=== PATIENT | female | born 2000 | race Caucasian/White ===

== ENCOUNTER 2023-06-06 18:56 | Inpatient (IN) ==
--- NOTE | 2023-06-06 19:51 | Emergency Department Note ---
History of Present Illness General Chief complaint: Mental Health Evaluation Stated complaint: MHE Time Seen by Provider: 06/06/23 19:09 Source: patient and family (Mother and sister at bedside) History of Present Illness Provider complaint: Suicidal ideation Onset (ago): day(s) 1 23-year-old female presents emergency department for suicidal ideation. Patient reports she has been feeling suicidal for the last day due to stress at her job at the [employer]. Patient states she was written up due to an absence recently without a doctor's note. She reports no specific plan as to how she would harm self. She reports no chance of . She reports no drugs or alcohol. Home Medications Medication Instructions Recorded Confirmed Type lamotrigine 100 mg tablet 150 mg PO 1XD 06/06/23 06/06/23 History lurasidone 20 mg tablet 20 mg PO 3XD 06/06/23 06/06/23 History Allergies Allergy/AdvReac Type Severity Reaction Status Date / Time No Known Allergies Allergy Unverified 08/14/11 11:28 Past Med/Surg History Medical History ADHD Anxiety Bipolar disorder Depression Surgical History H/O wisdom tooth extraction Family History Other Bipolar disorder Denies family history of Ovarian cancer Prostate cancer Heart disease Breast cancer Lung cancer Social History Smoking Status: Current every day smoker Tobacco Type: E-cigarettes / Vaping packs per day: 0.5; Hx Alcohol Use: Yes Alcohol Intake Frequency: Monthly or Less Hx Substance Use: No Preferred Language: Albanian Communication Ability: Effective Visual Impairment: No Limitations Hearing Ability: Normal Greens Keeper Required: No Beliefs That Will Affect Care: None marital status: Single Current Living Situation: Parent current occupational status: employed 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 How many Children do You have: 0 Feels Safe at Home: Yes Diet: regular during the past year weight has: remained stable Dental Care, Regularly: No Physical Activity Frequency: Does not Exercise Gender Identity: Female Assistive Devices: Glasses Physical Exam Vital Signs Vital Signs - 24 hr 06/06/23 19:01 06/07/23 00:02 06/07/23 00:18 Temperature 36.9 C 36.7 C Temperature Source Temporal Artery Scan Oral Pulse Rate 67 Pulse Rate [Left Finger] 55 L Pulse Rhythm [Left Finger] Regular Pulse Strength [Left Finger] Normal Respiratory Rate 16 18 Respiratory Effort / Characteristics Non-Labored Spontaneous Non-Labored Respiratory Depth Normal Normal Respiratory Pattern Regular Regular Blood Pressure 125/80 Blood Pressure [Left Arm] 111/73 Blood Pressure Mean 95 Blood Pressure Mean [Left Arm] 85 Blood Pressure Position [Left Arm] Sitting Pulse Oximetry 98 98 Oxygen Delivery Method Room Air Room Air Room Air Sepsis Recent Fever Within 48 Hours No Sepsis New/Unexplained Change in Mental Status No Sepsis Action Taken by Nursing No Action Required Physical Exam GENERAL: oriented to person, place, and time. appears well-developed and well- nourished. HENT: Exam performed. - Head: Normocephalic and atraumatic. EYES: Conjunctivae and EOM are normal. Right eye exhibits no discharge. Left eye exhibits no discharge. No scleral icterus. NECK: Normal range of motion. Neck supple. No JVD present. CV: Normal rate, regular rhythm, normal heart sounds and intact distal pulses. There is no peripheral edema. Palpable radial pulses bue. PULM/CHEST: Effort normal and breath sounds normal. No respiratory distress. No stridor. no wheezes. no rales. NEURO: Motor and sensation grossly intact. SKIN: Skin is warm and dry. He is not diaphoretic. PSYCH: Patient appears depressed. Suicidal ideation Course Course 1909: The patient was evaluated in room A6. A complete history and physical exam was performed 2030: Patient medically cleared. Awaiting evaluation by psychiatric family caseworker and possible placement. Patient placed in observation at this time. 0030: Patient excepted to 3 S. Medical Decision Making Laboratory Data 06/06/23 19:09 06/06/23 19:09 Lab Results 06/06/23 06/06/23 06/06/23 Range/Units 19:09 19:09 19:09 WBC 10.98 H (4.8-10.8) K/ul RBC 4.61 (4.20-5.40) M/uL Hgb 12.7 (12.0-16.0) g/dl Hct 38.4 (37.0-47.0) % MCV 83.3 (80.0-100.0) fL MCH 27.5 (25.0-34.0) pg MCHC 33.1 (32.0-36.0) g/dL RDW Std Deviation 38.4 (36.4-46.3) fL RDW Coeff of Daniel 12.7 (11.5-14.5) % Plt Count 338 (130-400) K/uL MPV 10.1 (9.4-12.4) fL Immature Gran % (Auto) 0.3 % Neut % (Auto) 71.6 % Lymph % (Auto) 22.3 % [place] % (Auto) 4.5 % Eos % (Auto) 0.9 % Baso % (Auto) 0.4 % Neut # (Auto) 7.87 H (1.40-6.50) K/uL Lymph # (Auto) 2.45 (1.2-3.4) K/uL [place] # (Auto) 0.49 (0.11-0.59) K/uL Eos # (Auto) 0.10 (0-0.50) K/uL Baso # (Auto) 0.04 (0-0.2) K/uL Immature Gran # (Auto) 0.03 (0.01-0.20) K/uL Sodium 138 (136-145) mmol/L Potassium 3.9 (3.5-5.1) mmol/L Chloride 105 (98-107) mmol/L Carbon Dioxide 24 (21-32) mmol/L Anion Gap 9 (3-11) BUN 14 (6-23) mg/dl Creatinine 0.79 (0.6-1.2) mg/dl Est Cr Clr Drug Dosing 119.6 ml/min Est GFR ( Amer) 122.3 ml/min Est GFR (Non-Af Amer) 105.5 ml/min BUN/Creatinine Ratio 17.7 (10-20) Glucose 96 (70-99(Fasting)) mg/dl Calcium 9.5 (8.6-10.3) mg/dl Total Bilirubin 0.3 (0.2-1.0) mg/dl AST 17 (13-39) U/L ALT 19 (7-52) U/L Alkaline Phosphatase 105 H (34-104) U/L Total Protein 7.4 (6.0-8.3) gm/dl Albumin 4.6 (3.4-5.0) gm/dl Globulin 2.8 (2.5-4.0) gm/dl Albumin/Globulin Ratio 1.6 (0.9-2) TSH 3.130 (0.300-4.500) uIu/ml Urine Color Urine Appearance (Clear) Urine pH (4.5-7.5) Ur Specific Byron (1.000-1.030) Urine Protein (Negative) Urine Glucose (UA) (Negative) Urine Ketones (Negative) Urine Blood (Negative) Urine Nitrite (Negative) Urine Bilirubin (Negative) Urine Urobilinogen (Negative) Ur Leukocyte Esterase (Negative) Urine WBC (Auto) (0-5) /hpf Urine RBC (Auto) (0-4) /hpf U Hyaline Cast (Auto) (0-5) /lpf U Epithel Cells (Auto) (0-5) /lpf Urine Bacteria (Auto) (Negative) Ur Renal Epithelial Cell Urine Mucus (None Prsent) Urine Yeast Salicylates (3.0-30) mg/dl Urine Opiates Screen (Neg) Ur Methadone, Qual (Neg) Acetaminophen (10-30) ug/ml Urine Barbiturates (Neg) Ur Phencyclidine (PCP) (Neg) U Amphetamin/Meth Scrn (Neg) MDMA (Ecstasy) Screen (Neg) U Benzodiazepines Scrn (Neg) Ur Cocaine Metabolite (Neg) U Marijuana (THC) Screen (Neg) Ethyl Alcohol mg/dL (<10.0) mg/dl SARS-CoV-2, RNA, NAAT (NEGATIVE) 06/06/23 06/06/23 06/06/23 Range/Units 19:09 19:09 19:12 WBC (4.8-10.8) K/ul RBC (4.20-5.40) M/uL Hgb (12.0-16.0) g/dl Hct (37.0-47.0) % MCV (80.0-100.0) fL MCH (25.0-34.0) pg MCHC (32.0-36.0) g/dL RDW Std Deviation (36.4-46.3) fL RDW Coeff of Daniel (11.5-14.5) % Plt Count (130-400) K/uL MPV (9.4-12.4) fL Immature Gran % (Auto) % Neut % (Auto) % Lymph % (Auto) % [place] % (Auto) % Eos % (Auto) % Baso % (Auto) % Neut # (Auto) (1.40-6.50) K/uL Lymph # (Auto) (1.2-3.4) K/uL [place] # (Auto) (0.11-0.59) K/uL Eos # (Auto) (0-0.50) K/uL Baso # (Auto) (0-0.2) K/uL Immature Gran # (Auto) (0.01-0.20) K/uL Sodium (136-145) mmol/L Potassium (3.5-5.1) mmol/L Chloride (98-107) mmol/L Carbon Dioxide (21-32) mmol/L Anion Gap (3-11) BUN (6-23) mg/dl Creatinine (0.6-1.2) mg/dl Est Cr Clr Drug Dosing ml/min Est GFR ( Amer) ml/min Est GFR (Non-Af Amer) ml/min BUN/Creatinine Ratio (10-20) Glucose (70-99(Fasting)) mg/dl Calcium (8.6-10.3) mg/dl Total Bilirubin (0.2-1.0) mg/dl AST (13-39) U/L ALT (7-52) U/L Alkaline Phosphatase (34-104) U/L Total Protein (6.0-8.3) gm/dl Albumin (3.4-5.0) gm/dl Globulin (2.5-4.0) gm/dl Albumin/Globulin Ratio (0.9-2) TSH (0.300-4.500) uIu/ml Urine Color Urine Appearance (Clear) Urine pH (4.5-7.5) Ur Specific [place] (1.000-1.030) Urine Protein (Negative) Urine Glucose (UA) (Negative) Urine Ketones (Negative) Urine Blood (Negative) Urine Nitrite (Negative) Urine Bilirubin (Negative) Urine Urobilinogen (Negative) Ur Leukocyte Esterase (Negative) Urine WBC (Auto) (0-5) /hpf Urine RBC (Auto) (0-4) /hpf U Hyaline Cast (Auto) (0-5) /lpf U Epithel Cells (Auto) (0-5) /lpf Urine Bacteria (Auto) (Negative) Ur Renal Epithelial Cell Urine Mucus (None Prsent) Urine Yeast Salicylates < 3.0 L (3.0-30) mg/dl Urine Opiates Screen (Neg) Ur Methadone, Qual (Neg) Acetaminophen < 3 L (10-30) ug/ml Urine Barbiturates (Neg) Ur Phencyclidine (PCP) (Neg) U Amphetamin/Meth Scrn (Neg) MDMA (Ecstasy) Screen (Neg) U Benzodiazepines Scrn (Neg) Ur Cocaine Metabolite (Neg) U Marijuana (THC) Screen (Neg) Ethyl Alcohol mg/dL < 10.0 (<10.0) mg/dl SARS-CoV-2, RNA, NAAT NEGATIVE (NEGATIVE) 06/06/23 06/06/23 Range/Units 19:23 19:23 WBC (4.8-10.8) K/ul RBC (4.20-5.40) M/uL Hgb (12.0-16.0) g/dl Hct (37.0-47.0) % MCV (80.0-100.0) fL MCH (25.0-34.0) pg MCHC (32.0-36.0) g/dL RDW Std Deviation (36.4-46.3) fL RDW Coeff of Daniel (11.5-14.5) % Plt Count (130-400) K/uL MPV (9.4-12.4) fL Immature Gran % (Auto) % Neut % (Auto) % Lymph % (Auto) % [place] % (Auto) % Eos % (Auto) % Baso % (Auto) % Neut # (Auto) (1.40-6.50) K/uL Lymph # (Auto) (1.2-3.4) K/uL [place] # (Auto) (0.11-0.59) K/uL Eos # (Auto) (0-0.50) K/uL Baso # (Auto) (0-0.2) K/uL Immature Gran # (Auto) (0.01-0.20) K/uL Sodium (136-145) mmol/L Potassium (3.5-5.1) mmol/L Chloride (98-107) mmol/L Carbon Dioxide (21-32) mmol/L Anion Gap (3-11) BUN (6-23) mg/dl Creatinine (0.6-1.2) mg/dl Est Cr Clr Drug Dosing ml/min Est GFR ( Amer) ml/min Est GFR (Non-Af Amer) ml/min BUN/Creatinine Ratio (10-20) Glucose (70-99(Fasting)) mg/dl Calcium (8.6-10.3) mg/dl Total Bilirubin (0.2-1.0) mg/dl AST (13-39) U/L ALT (7-52) U/L Alkaline Phosphatase (34-104) U/L Total Protein (6.0-8.3) gm/dl Albumin (3.4-5.0) gm/dl Globulin (2.5-4.0) gm/dl Albumin/Globulin Ratio (0.9-2) TSH (0.300-4.500) uIu/ml Urine Color Yellow Urine Appearance Cloudy A (Clear) Urine pH 6.5 (4.5-7.5) Ur Specific [place] 1.023 (1.000-1.030) Urine Protein Negative (Negative) Urine Glucose (UA) Negative (Negative) Urine Ketones Negative (Negative) Urine Blood Negative (Negative) Urine Nitrite Negative (Negative) Urine Bilirubin Negative (Negative) Urine Urobilinogen Negative (Negative) Ur Leukocyte Esterase Trace H (Negative) Urine WBC (Auto) 5-10 H (0-5) /hpf Urine RBC (Auto) 0-4 (0-4) /hpf U Hyaline Cast (Auto) 1-5 (0-5) /lpf U Epithel Cells (Auto) >30 H (0-5) /lpf Urine Bacteria (Auto) 1+ H (Negative) Ur Renal Epithelial Cell Not Reportable Urine Mucus Present A (None Prsent) Urine Yeast Not Reportable Salicylates (3.0-30) mg/dl Urine Opiates Screen Neg (Neg) Ur Methadone, Qual Neg (Neg) Acetaminophen (10-30) ug/ml Urine Barbiturates Neg (Neg) Ur Phencyclidine (PCP) Neg (Neg) U Amphetamin/Meth Scrn Neg (Neg) MDMA (Ecstasy) Screen Neg (Neg) U Benzodiazepines Scrn Neg (Neg) Ur Cocaine Metabolite Neg (Neg) U Marijuana (THC) Screen Neg (Neg) Ethyl Alcohol mg/dL (<10.0) mg/dl SARS-CoV-2, RNA, NAAT (NEGATIVE) MDM Narrative 1909: The patient was evaluated in room A6. A complete history and physical exam was performed 2030: Patient medically cleared. Awaiting evaluation by psychiatric family caseworker and possible placement. Patient placed in observation at this time. 0030: Patient excepted to 3 S. Observation note Indication: Psych eval/placement Patient, with anxiety, bipolar was first seen at 1909 hrs and the observation time began at 2030 hrs and was necessary in order to have psych evaluation completed . Upon re-evaluation, 4 hours of observation revealed that the patient should be admitted . Disposition date and time 2906/07/23. Impression & Plan Depression with suicidal ideation Discharge Plan Visit Data Chief Complaint: Mental Health Evaluation Stated Complaint: MHE ED Provider: César Haddad Discharge Problem: Depression with suicidal ideation Patient Disposition: Admitted As Inpatient Discharge Instructions Interventions: ED Discharge Assessment Last Done: 06/07/23 00:40
[2023-06-06 20:03] LABS: Appearance Urine Cloudy (Clear); Bilirubin Urine Negative (Negative); Blood Urine Negative (Negative); Color Urine Yellow; Epithelial Cell Urine Auto >30 /lpf (0-5); Glucose Urine UA Negative (Negative); Ketones Urine Negative (Negative); Leukocyte Esterase Urine Trace (Negative); Nitrite Urine Negative (Negative); Protein Urine Negative (Negative); Specific Gravity Urine 1.023 (1.000-1.030); Urobilinogen Urine Negative (Negative); pH Urine 6.5 (4.5-7.5)
[2023-06-06 20:03] LABS: Basophils # (auto) 0.04 K/uL (0-0.2); Basophils % (auto) 0.4 %; Eosinophils % (auto) 0.9 %; Hematocrit (blood only) 38.4 % (37.0-47.0); Hemoglobin 12.7 g/dl (12.0-16.0); Immature Granulocytes # (auto) 0.03 K/uL (0.01-0.20); Immature Granulocytes % (auto) 0.3 %; Lymphocytes # (auto) 2.45 K/uL (1.2-3.4); Lymphocytes % (auto) 22.3 %; Mean Corpuscular Hemoglobin 27.5 pg (25.0-34.0); Mean Corpuscular Hgb Conc 33.1 g/dL (32.0-36.0); Mean Corpuscular Volume 83.3 fL (80.0-100.0); Mean Platelet Volume 10.1 fL (9.4-12.4); Monocytes # (auto) 0.49 K/uL (0.11-0.59); Monocytes % (auto) 4.5 %; Neutrophils # (auto) 7.87 K/uL (1.40-6.50); Neutrophils % (auto) 71.6 %; Platelet Count 338 K/uL (130-400); RDW Coefficient of Variation 12.7 % (11.5-14.5); RDW Standard Deviation 38.4 fL (36.4-46.3); Red Blood Count 4.61 M/uL (4.20-5.40); White Blood Count 10.98 K/ul (4.8-10.8)
[2023-06-06 20:14] LABS: Bacteria Urine Automated 1+ (Negative); Mucus Urine Present (None Prsent); RBC Urine Automated 0-4 /hpf (0-4)
[2023-06-06 20:17] LABS: Albumin Globulin Ratio 1.6 (0.9-2); Albumin Level 4.6 gm/dl (3.4-5.0); BUN Creatinine Ratio 17.7 (10-20); Bilirubin,Total 0.3 mg/dl (0.2-1.0); Calcium 9.5 mg/dl (8.6-10.3); Creatinine Clr Calc Pharmacy 119.6 ml/min; Est GFR (African American) 122.3 ml/min; Est GFR (Non-African American) 105.5 ml/min; Globulin 2.8 gm/dl (2.5-4.0); Potassium 3.9 mmol/L (3.5-5.1); Total Protein 7.4 gm/dl (6.0-8.3)
[2023-06-06 20:29] LABS: Acetaminophen < 3 ug/ml (10-30); Salicylate < 3.0 mg/dl (3.0-30)
[2023-06-06 20:29] LABS: Amphetamines+Metham, Urine Neg (Neg); Barbiturates, Urine Neg (Neg); Benzodiazepine, Urine Neg (Neg); Cocaine, Urine Neg (Neg); MDMA (Ecstacy), Urine Neg (Neg); Methadone, Urine Neg (Neg); Opiate, Urine Neg (Neg); Phencyclidine, Urine Neg (Neg)
[2023-06-07] MEDS ORDERED: ALUMINUM/MAGNESIUM SUSP 30 ML UDC PO PRN (00:21)
[2023-06-07] MEDS ORDERED: MAGNESIUM HYDROXIDE SUSP 30 ML UDC PO PRN (00:21)
[2023-06-07] MEDS ORDERED: BISMUTH SUBSALICYLATE LIQD 236 ML PO PRN (00:21)
[2023-06-07] MEDS ORDERED: SODIUM CHLORIDE 0.65% NA SOLN 45 ML (OCEAN) PRN (00:21)
[2023-06-07] MEDS ORDERED: ACETAMINOPHEN 325 MG TAB PO PRN (00:21)
[2023-06-07] MEDS ORDERED: hydrOXYzine HCl 25 MG TAB PO PRN ×2 (00:21)
[2023-06-07] MEDS: NICOTINE 21 MG/24 HR TDSY TD SCH (08:23)
[2023-06-07] MEDS ORDERED: SUCRALFATE 1 GM TAB PO PRN (15:59)
[2023-06-07] MEDS ORDERED: NICOTINE POLACRILEX 2 MG GUM MT PRN (16:00)
--- NOTE | 2023-06-07 16:21 | History & Physical ---
Date of Service June 07, 2023 Impression / Recommendations Nasreen Jerome is a 23 year old with a history of bipolar disorder type II, anxiety, depression, ADHD who was admitted for increased depression and SI with plan. Diagnostically consistent with likely episode of depression in context of BPAD type II as well as SKY. They are deemed in need of psychiatric hospitalization for diagnostic clarification, safety and stabilization, medication management and development of further coping skills. Discussed medication treatment options in detail. Discussed risks, benefits and alternatives. Patient would like to start and consented to mirtazapine for augmentation for depression, anxiety, insomnia, poor appetite. Reviewed side effects including but not limited to: sedation, increased appetite and counseled on black box warning of potential for emergence of or increased SI and need to let staff know should this occur or should they feel unsafe. Also discussed importance of seeking emergency care following discharge if this side effect occurs in the future. Also reviewed side effects including but not limited to potential for fatal rash/zunilda's Karthikeyan syndrome with Lamictal as well as movement (TD, NMS), cardiac (QTc prolongation), and metabolic (stroke, insulin resistance) and necessity for fasting lipid and glucose labwork and AIMS done with score of 0 with Latuda. MNPR-gender diverse (1) Depression with suicidal ideation: (2) Bipolar 2 disorder, major depressive episode: (3) SKY (generalized anxiety disorder): (4) Deliberate self-cutting: Plan 06/07/2023: The patient was admitted to the [facility] ([facility] unit) on q15 min checks (behavioral with suicide precautions) for safety. The patient will participate in group, recreational, and milieu therapies and will be offered additional individual and family sessions as clinically appropriate. -Continue Latuda 20mg qd -Continue Lamictal 150mg qd -Start mirtazapine 15mg HS -Nicotine replacement -Fasting glucose and lipid panel in AM Inventory Assets Strengths: supportive relationships, willing to get treatment Needs: safety and stabilization, medication adjustment, additional coping skills, increased outpatient services Suicide Risk Level Suicide Risk Level: High-Moderate (q15 min suicide checks) (severe depression with SI with plan prior to admission but feels safe in the hospital, able to safety contract and agrees to let nursing/staff know should they develop plan, intent or feel unable to remain safe. ) Risk Factors Assessment Male: No : Yes Do You Have Access To A Gun?: No Health Problems: No Mental Health Diagnoses: Yes Substance Use Disorders: No Previous Attempt: No Family History of Suicide: No Previous Psychiatric Hospitalization: No Protective Factors Assessment Employed: Yes ([employer]) Stable Relationships: Yes Supportive Family: Yes Good Rapport with Provider: Yes Psychiatric History Identifying Data MARIA EUGENIA MILLER is a 23-year-old gender diverse individual who currently lives in [facility] with two roommates, has a history of ADHD, anxiety, depression and bipolar disorder type II, and was admitted on 06/07/23 00:21 on a 201 voluntary commitment for worsening depression and SI with plan. Chief Complaint "I've been in that period where it feels like nothing helps". History of Present Illness Maria Eugenia reports worsening depression, increased self-harm via cutting and SI with possible plan of filling their tub and cutting their wrists in the context of financial and work stress. They report depression symptoms of low energy, decreased sleep, decreased motivation, increased tearfulness, decreased appetite, nausea, and feeling like a burden to others which has been worsening over the last few weeks. They also report anxiety including related to dreading work and feeling easily overwhelmed. They note that "it makes me feel stupid to be so stressed about my job, it shouldn't be so much stress but I guess it's a toxic work environment". They also report sense of self-guilt for being in the hospital as this means more days of missing work and getting behind on rent payments/finances. They have been self-harming more frequently by cutting their arms, most recently to upper left arm. They are currently prescribed psychiatric medications of lamictal 150mg qd and latuda 20mg qd. Lamictal has been for a few months with unclear benefits and latuda was started about one month ago. Psychiatric ROS notable for history of possible episodes of hypomania, history of trauma, history of suspected ADHD reports having a few short attention span, poor memory, poor concentration. No history of acute psychosis. Past Psychiatric History Current Psychiatric Diagnosis: BPAD type II, ADHD, anxiety, depression Outpatient Services: Psychiatric medication via Thuy at [facility], therapy every other week with Georgina at [facility] Previous Psych Admissions: none Do You Have Access To A Gun?: No History of Previous Suicide Attempt: No Past Medication Trials: recalls abilify recently, cannot recall other past trials but thinks they have been on one other mood stabilizer Past Head Trauma/Neuro History History of Concussion/Seizure: No Allergies Allergy/AdvReac Type Severity Reaction Status Date / Time No Known Allergies Allergy Verified 06/07/23 16:10 Home Medications Medication Instructions Recorded Confirmed Type lamotrigine 100 mg tablet 150 mg PO 1XD 06/06/23 06/06/23 History lurasidone 20 mg tablet 20 mg PO 1XD 06/06/23 06/07/23 History omeprazole 20 mg capsule,delayed 20 mg 1XD 06/07/23 06/07/23 History release sucralfate 1 gram tablet (Carafate) 1 mg PO QID 06/07/23 06/07/23 History Family History Family History of: Depression, Anxiety, Other-List under Comment (suspects ADHD on paternal side, sister ) and Bipolar (mother and sister) Alcohol History Hx of Alcohol Use Over the Past 12 Months: No AUDIT Total Score: 0 Drinks alcohol a few times per year Smoking Use Have You Smoked or Used Tobacco Products in the Last 30 Days: Yes tobacco type: e-cigarettes Smoking Status: Current every day smoker Substance History Hx of Prescription Med Misuse Over the Past 12 Months: No Hx of Over the Counter Med Misuse Over the Past 12 Months: No Hx of Inhalent Misuse Over the Past 12 Months: No Hx of Organic Substance Use Over the Past 12 Months: No Hx of Illegal Substances/Street Drug Use Over Past 12 Months: No Problems as a Result of Past Substance Use: None Identified Personal History Living Arrangements: Home (with two roommates who are their close friends) Childhood: Mother and sister are good supports Highest Grade Completed: High School Graduate 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[employer]) Marital Status: Single Number Of Children: 0 Beliefs That Will Affect Care: None Current Legal Problems: No Hx Legal Problems: No Hx Traumatic Life Events: Yes Patient History Medical History ADHD Anxiety Bipolar disorder Depression Surgical History H/O wisdom tooth extraction Family History Other Bipolar disorder Denies family history of Ovarian cancer Prostate cancer Heart disease Breast cancer Lung cancer Social History Smoking Status: Current every day smoker Tobacco Type: E-cigarettes / Vaping packs per day: 0.5; Hx Alcohol Use: Yes Alcohol Intake Frequency: Monthly or Less Hx Substance Use: No Preferred Language: Bruneian Communication Ability: Effective Visual Impairment: No Limitations Hearing Ability: Normal Linen Clerk Required: No Beliefs That Will Affect Care: None marital status: Single Current Living Situation: Parent current occupational status: employed 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 How many Children do You have: 0 Feels Safe at Home: Yes Diet: regular during the past year weight has: remained stable Dental Care, Regularly: No Physical Activity Frequency: Does not Exercise Gender Identity: Female Assistive Devices: Glasses Review of Systems Review of Systems: All systems reviewed & are unremarkable except as noted in HPI & below Physical Exam Psychiatric: Orientation: alert and oriented x 3 Apperance: appropriately dressed and appropriately groomed Eye Contact: good eye contact Motor Behavior: no abnormal motor movements Speech: normal rate/rhythm/volume of speech Affect: + depressed affect and + anxious affect Mood: + depressed mood and + anxious mood Thought Process: goal directed thought process Thought Content: + cognitive distortions, reality based without delusions and + worthlessness Suicidal Thoughts: denies suicidal plan (feels safe here in the hospital, none for here) and denies suicidal intent; + reports suicidal thoughts (intermittent ) Homicidal Thoughts: denies homicidal thoughts Hallucinations: no auditory hallucinations and no visual hallucinations Cognition: recent memory grossly intact, remote memory grossly intact, attention grossly intact and language grossly intact Estimated Intelligence: consistent with education level Insight: + fair insight Judgment: + limited judgement Vital Signs (Past 24 Hours): Last Vital Signs Temp 36.9 C 06/07/23 06:21 Pulse 65 06/07/23 06:22 Resp 18 06/07/23 06:21 BP 89/57 L 06/07/23 06:22 Pulse Ox 98 06/07/23 06:21 O2 Del Method Room Air 06/07/23 06:21 Exam Statement: A physical exam was performed in the ED by Dr. Haddad for the purposes of medical clearance. I accept that physical as correct and adequate for the purposes of the inpatient physical exam. Results & Data ([facility]) Laboratory Results Laboratory Results - last 24 hr 06/06/23 06/06/23 06/06/23 19:09 19:09 19:09 WBC 10.98 H RBC 4.61 Hgb 12.7 Hct 38.4 MCV 83.3 MCH 27.5 MCHC 33.1 RDW Std Deviation 38.4 RDW Coeff of Daniel 12.7 Plt Count 338 MPV 10.1 Immature Gran % (Auto) 0.3 Neut % (Auto) 71.6 Lymph % (Auto) 22.3 Carroll % (Auto) 4.5 Eos % (Auto) 0.9 Baso % (Auto) 0.4 Neut # (Auto) 7.87 H Lymph # (Auto) 2.45 Carroll # (Auto) 0.49 Eos # (Auto) 0.10 Baso # (Auto) 0.04 Immature Gran # (Auto) 0.03 Sodium 138 Potassium 3.9 Chloride 105 Carbon Dioxide 24 Anion Gap 9 BUN 14 Creatinine 0.79 Est Cr Clr Drug Dosing 119.6 Est GFR ( Amer) 122.3 Est GFR (Non-Af Amer) 105.5 BUN/Creatinine Ratio 17.7 Glucose 96 Calcium 9.5 Total Bilirubin 0.3 AST 17 ALT 19 Alkaline Phosphatase 105 H Total Protein 7.4 Albumin 4.6 Globulin 2.8 Albumin/Globulin Ratio 1.6 TSH 3.130 Urine Color Urine Appearance Urine pH Ur Specific [place] Urine Protein Urine Glucose (UA) Urine Ketones Urine Blood Urine Nitrite Urine Bilirubin Urine Urobilinogen Ur Leukocyte Esterase Urine WBC (Auto) Urine RBC (Auto) U Hyaline Cast (Auto) U Epithel Cells (Auto) Urine Bacteria (Auto) Ur Renal Epithelial Cell Urine Mucus Urine Yeast POC Ur Test Salicylates Urine Opiates Screen Ur Methadone, Qual Acetaminophen Urine Barbiturates Ur Phencyclidine (PCP) U Amphetamin/Meth Scrn MDMA (Ecstasy) Screen U Benzodiazepines Scrn Ur Cocaine Metabolite U Marijuana (THC) Screen Ethyl Alcohol mg/dL SARS-CoV-2, RNA, NAAT 06/06/23 06/06/23 06/06/23 19:09 19:09 19:12 WBC RBC Hgb Hct MCV MCH MCHC RDW Std Deviation RDW Coeff of Daniel Plt Count MPV Immature Gran % (Auto) Neut % (Auto) Lymph % (Auto) Carroll % (Auto) Eos % (Auto) Baso % (Auto) Neut # (Auto) Lymph # (Auto) [place] # (Auto) Eos # (Auto) Baso # (Auto) Immature Gran # (Auto) Sodium Potassium Chloride Carbon Dioxide Anion Gap BUN Creatinine Est Cr Clr Drug Dosing Est GFR ( Amer) Est GFR (Non-Af Amer) BUN/Creatinine Ratio Glucose Calcium Total Bilirubin AST ALT Alkaline Phosphatase Total Protein Albumin Globulin Albumin/Globulin Ratio TSH Urine Color Urine Appearance Urine pH Ur Specific [place] Urine Protein Urine Glucose (UA) Urine Ketones Urine Blood Urine Nitrite Urine Bilirubin Urine Urobilinogen Ur Leukocyte Esterase Urine WBC (Auto) Urine RBC (Auto) U Hyaline Cast (Auto) U Epithel Cells (Auto) Urine Bacteria (Auto) Ur Renal Epithelial Cell Urine Mucus Urine Yeast POC Ur Test Salicylates < 3.0 L Urine Opiates Screen Ur Methadone, Qual Acetaminophen < 3 L Urine Barbiturates Ur Phencyclidine (PCP) U Amphetamin/Meth Scrn MDMA (Ecstasy) Screen U Benzodiazepines Scrn Ur Cocaine Metabolite U Marijuana (THC) Screen Ethyl Alcohol mg/dL < 10.0 SARS-CoV-2, RNA, NAAT NEGATIVE 06/06/23 06/06/23 06/07/23 19:23 19: 00:38 WBC RBC Hgb Hct MCV MCH MCHC RDW Std Deviation RDW Coeff of Daniel Plt Count MPV Immature Gran % (Auto) Neut % (Auto) Lymph % (Auto) Carroll % (Auto) Eos % (Auto) Baso % (Auto) Neut # (Auto) Lymph # (Auto) Carroll # (Auto) Eos # (Auto) Baso # (Auto) Immature Gran # (Auto) Sodium Potassium Chloride Carbon Dioxide Anion Gap BUN Creatinine Est Cr Clr Drug Dosing Est GFR ( Amer) Est GFR (Non-Af Amer) BUN/Creatinine Ratio Glucose Calcium Total Bilirubin AST ALT Alkaline Phosphatase Total Protein Albumin Globulin Albumin/Globulin Ratio TSH Urine Color Yellow Urine Appearance Cloudy A Urine pH 6.5 Ur Specific [place] 1.023 Urine Protein Negative Urine Glucose (UA) Negative Urine Ketones Negative Urine Blood Negative Urine Nitrite Negative Urine Bilirubin Negative Urine Urobilinogen Negative Ur Leukocyte Esterase Trace H Urine WBC (Auto) 5-10 H Urine RBC (Auto) 0-4 U Hyaline Cast (Auto) 1-5 U Epithel Cells (Auto) >30 H Urine Bacteria (Auto) 1+ H Ur Renal Epithelial Cell Not Reportable Urine Mucus Present A Urine Yeast Not Reportable POC Ur Test NEG Salicylates Urine Opiates Screen Neg Ur Methadone, Qual Neg Acetaminophen Urine Barbiturates Neg Ur Phencyclidine (PCP) Neg U Amphetamin/Meth Scrn Neg MDMA (Ecstasy) Screen Neg U Benzodiazepines Scrn Neg Ur Cocaine Metabolite Neg U Marijuana (THC) Screen Neg Ethyl Alcohol mg/dL SARS-CoV-2, RNA, NAAT Current Inpatient Medications Current Inpatient Medications: Current Inpatient Medications Acetaminophen (Acetaminophen 325 Mg Tab) 650 mg PO Q4H PRN PRN Reason: Headache or Minor Fever Stop: 07/07/23 00:20 Al Hydrox/Mg Hydrox/Simethicone (Aluminum/Magnesium Susp 30 Ml Udc) 30 ml PO Q4H PRN PRN Reason: GI Upset Stop: 07/07/23 00:20 Bismuth Subsalicylate (Bismuth Subsalicylate Liqd 236 Ml) 15 ml PO PRN PRN PRN Reason: Loose Stool Stop: 07/07/23 00:20 Hydroxyzine HCl (Hydroxyzine Hcl 25 Mg Tab) 50 mg PO HSZ PRN PRN Reason: Insomnia Stop: 07/07/23 00:20 Hydroxyzine HCl (Hydroxyzine Hcl 25 Mg Tab) 25 mg PO Q4H PRN PRN Reason: Anxiety Stop: 07/07/23 00:20 Lamotrigine (Lamotrigine 100 Mg Tab) 100 mg PO QAM [facility] Stop: 07/07/23 15:59 Magnesium Hydroxide (Magnesium Hydroxide Susp 30 Ml Udc) 30 ml PO DAILY PRN PRN Reason: Constipation Stop: 07/07/23 00:20 Miscellaneous (Remove Nicoderm Patch) 1 each N/A DAILY@0859 [facility] Stop: 07/08/23 08:58 Nicotine (Nicotine 21 Mg/24 Hr Tdsy) 21 mg TD QAM [facility] Stop: 07/07/23 08:59 Last Admin: 06/07/23 08:23 Dose: 21 mg Nicotine Polacrilex (Nicotine Polacrilex 2 Mg Gum) 1 piece MT PRN PRN PRN Reason: nicotine cravings Stop: 07/07/23 15:59 Sodium Chloride (Sodium Chloride 0.65% Na Soln 45 Ml ([place])) 1 - 2 sprays NA PRN PRN PRN Reason: Nasal Dryness/Congestion Stop: 07/07/23 00:20 Sucralfate (Sucralfate 1 Gm Tab) 1 gm PO DAILY PRN PRN Reason: Heartburn Stop: 07/08/23 08:59
[2023-06-07] MEDS: LURASIDONE HCL 40 MG TAB PO SCH (16:52)
[2023-06-07] MEDS: lamoTRIgine 100 MG TAB PO SCH (16:52)
[2023-06-07] MEDS: lamoTRIgine 25 MG TAB PO SCH (16:52)
[2023-06-07] MEDS: MIRTAZAPINE TAB 15 MG TAB PO SCH (21:10)
[2023-06-08] MEDS: LURASIDONE HCL 40 MG TAB PO SCH (08:32)
[2023-06-08] MEDS: lamoTRIgine 25 MG TAB PO SCH (08:33)
[2023-06-08] MEDS: lamoTRIgine 100 MG TAB PO SCH (08:33)
[2023-06-08] MEDS: NICOTINE 21 MG/24 HR TDSY TD SCH (08:37)
[2023-06-08 08:40] LABS: Chol HDL Ratio 3.8 (0-5)
--- NOTE | 2023-06-08 15:55 | Psychiatric Progress Note ---
Date of Service June 08, 2023 Impression / Recommendations Nasreen Jerome is a 23 year old with a history of bipolar disorder type II, anxiety, depression, ADHD who was admitted for increased depression and SI with plan. Diagnostically consistent with likely episode of depression in context of BPAD type II as well as SKY. They are deemed in need of psychiatric hospitalization for diagnostic clarification, safety and stabilization, medication management and development of further coping skills. MNPR-gender diverse 06/08/2023: Ongoing depression with intermittent SI, anxiety and poor sleep with multiple awakenings (though was also a fire alarm overnight). Given chronicity o f sleep problems may be worth considering outpatient sleep study to rule out sleep apnea. Explored role of job in leading to stress and mood symptoms and possible alternative work environments. Likely would require support with this process. Reviewed fasting glucose and lipid panel which was all normal. (1) Depression with suicidal ideation: (2) Bipolar 2 disorder, major depressive episode: (3) SKY (generalized anxiety disorder): (4) Deliberate self-cutting: (5) Insomnia: with multiple awakenings, consider outpatient sleep study to rule out obstructive sleep apnea Plan 06/08/2023: Continue current medications and tx plan. 06/07/2023: The patient was admitted to the [facility] on q15 min checks (behavioral with suicide precautions) for safety. The patient will participate in group, recreational, and milieu therapies and will be offered additional individual and family sessions as clinically appropriate. -Continue Latuda 20mg qd -Continue Lamictal 150mg qd -Start mirtazapine 15mg HS -Nicotine replacement -Fasting glucose and lipid panel in AM Inventory Assets Strengths: supportive relationships, willing to get treatment Needs: safety and stabilization, medication adjustment, additional coping skills, increased outpatient services Suicide Risk Level Suicide Risk Level: High-Moderate (q15 min suicide checks) (severe depression with SI with plan prior to admission but feels safe in the hospital, able to safety contract and agrees to let nursing/staff know should they develop plan, intent or feel unable to remain safe. ) Risk Factors Assessment Male: No : Yes Do You Have Access To A Gun?: No Health Problems: No Mental Health Diagnoses: Yes Substance Use Disorders: No Previous Attempt: No Family History of Suicide: No Previous Psychiatric Hospitalization: No Protective Factors Assessment Employed: Yes ([employer]) Stable Relationships: Yes Supportive Family: Yes Good Rapport with Provider: Yes Interval History Identifying Information MARIA EUGENIA MILLER is a 23-year-old gender diverse individual who currently lives in [facility] with two roommates, has a history of ADHD, anxiety, depression and bipolar disorder type II, and was admitted on 06/07/23 00:21 on a 201 voluntary commitment for worsening depression and SI with plan. Chief Complaint "I'm really tired and still worried about going back to work". Review of Systems Sleep Information Total Hours of Sleep: 5 Sleep Comments: Difficulty falling back asleep after being awoken by a fire drill Meal Information Percent Meal Consumed - Breakfast: 100 Percent Meal Consumed - Lunch: 100 Percent Meal Consumed - Dinner: 100 Subjective Subjective Patient was seen & assessed and interval progress reviewed with treatment team nursing and social work. Was able to fall asleep easily but with frequent nighttime awakenings which they feel has been the case since about middle school in terms of their sleep pattern. Still feeling intense anxiety and depression when thinking about returning to work. Wonders about social security benefits, explored this but also discussed benefits of work for emotional health/sense of meaning/happiness and discussed possible tele-work options. They feel unsure about how they would look for any type of remote work. They prefer to remain on current medications for now and see if sleep is any better tonight. Physical Exam Psychiatric Orientation: alert and oriented x 3 Apperance: appropriately dressed and appropriately groomed Eye Contact: good eye contact Motor Behavior: no abnormal motor movements Speech: normal rate/rhythm/volume of speech Affect: + depressed affect and + anxious affect Mood: + depressed mood and + anxious mood Thought Process: goal directed thought process and + concrete thought process Thought Content: + cognitive distortions, reality based without delusions and + worthlessness Suicidal Thoughts: denies suicidal plan (feels safe here in the hospital, none for here) and denies suicidal intent; + reports suicidal thoughts (intermittent ) Homicidal Thoughts: denies homicidal thoughts Hallucinations: no auditory hallucinations and no visual hallucinations Cognition: recent memory grossly intact, remote memory grossly intact, attention grossly intact and language grossly intact Estimated Intelligence: consistent with education level Insight: + limited insight Judgment: + limited judgement Vital Signs (Past 24 Hours) Last Vital Signs Temp 36.9 C 06/08/23 06:00 Pulse 62 06/08/23 06:36 Resp 16 06/08/23 06:00 BP 97/64 L 06/08/23 06:36 Pulse Ox 97 06/08/23 06:00 O2 Del Method Room Air 06/08/23 06:00 Results & Data ([facility]) Laboratory Results Laboratory Results - last 24 hr 06/08/23 07:10 Fasting Glucose 92 Triglycerides 106 Cholesterol 176 LDL Cholesterol, Calc 109 VLDL Cholesterol, Calc 21 HDL Cholesterol 46 Cholesterol/HDL Ratio 3.8 Current Inpatient Medications Current Inpatient Medications: Current Inpatient Medications Acetaminophen (Acetaminophen 325 Mg Tab) 650 mg PO Q4H PRN PRN Reason: Headache or Minor Fever Stop: 07/07/23 00:20 Al Hydrox/Mg Hydrox/Simethicone (Aluminum/Magnesium Susp 30 Ml Udc) 30 ml PO Q4H PRN PRN Reason: GI Upset Stop: 07/07/23 00:20 Bismuth Subsalicylate (Bismuth Subsalicylate Liqd 236 Ml) 15 ml PO PRN PRN PRN Reason: Loose Stool Stop: 07/07/23 00:20 Hydroxyzine HCl (Hydroxyzine Hcl 25 Mg Tab) 50 mg PO HSZ PRN PRN Reason: Insomnia Stop: 07/07/23 00:20 Hydroxyzine HCl (Hydroxyzine Hcl 25 Mg Tab) 25 mg PO Q4H PRN PRN Reason: Anxiety Stop: 07/07/23 00:20 Lamotrigine (Lamotrigine 100 Mg Tab) 100 mg PO QAM [facility] Stop: 07/07/23 15:59 Last Admin: 06/08/23 08:33 Dose: 100 mg Lamotrigine (Lamotrigine 25 Mg Tab) 50 mg PO QAM [facility] Stop: 07/07/23 15:59 Last Admin: 06/08/23 08:33 Dose: 50 mg Lurasidone HCl (Lurasidone Hcl 40 Mg Tab) 20 mg PO DAILY [facility] Stop: 07/07/23 15:59 Last Admin: 06/08/23 08:32 Dose: 20 mg Magnesium Hydroxide (Magnesium Hydroxide Susp 30 Ml Udc) 30 ml PO DAILY PRN PRN Reason: Constipation Stop: 07/07/23 00:20 Mirtazapine (Mirtazapine Tab 15 Mg Tab) 15 mg PO HS [facility] Stop: 07/07/23 21:59 Last Admin: 06/07/23 21:10 Dose: 15 mg Miscellaneous (Remove Nicoderm Patch) 1 each N/A DAILY@0859 [facility] Stop: 07/08/23 08:58 Last Admin: 06/08/23 08:37 Dose: 1 each Nicotine (Nicotine 21 Mg/24 Hr Tdsy) 21 mg TD QAM [facility] Stop: 07/07/23 08:59 Last Admin: 06/08/23 08:37 Dose: 21 mg Nicotine Polacrilex (Nicotine Polacrilex 2 Mg Gum) 1 piece MT PRN PRN PRN Reason: nicotine cravings Stop: 07/07/23 15:59 Sodium Chloride (Sodium Chloride 0.65% Na Soln 45 Ml ([place])) 1 - 2 sprays NA PRN PRN PRN Reason: Nasal Dryness/Congestion Stop: 07/07/23 00:20 Sucralfate (Sucralfate 1 Gm Tab) 1 gm PO DAILY PRN PRN Reason: Heartburn Stop: 07/08/23 08:59 Mental Health & Subst Abuse [place] Psychiatrist Name [place] [facility]rist[place] [facility] Comment: [address] [place] [facility] [place] [address] Therapist Name of Therapist: Crystal Amador Therapist's Therapy Appointment Comment: [address] [place] [address], Audiovisual Equipment Operator Name of Audiovisual Equipment Operator: None
[2023-06-08] MEDS: MIRTAZAPINE TAB 15 MG TAB PO SCH (21:15)
[2023-06-09] MEDS: LURASIDONE HCL 40 MG TAB PO SCH (08:37)
[2023-06-09] MEDS: lamoTRIgine 100 MG TAB PO SCH (08:37)
[2023-06-09] MEDS: lamoTRIgine 25 MG TAB PO SCH (08:37)
[2023-06-09] MEDS: NICOTINE 21 MG/24 HR TDSY TD SCH (08:38)
--- NOTE | 2023-06-09 08:51 | Psychiatric Progress Note ---
Date of Service June 09, 2023 Impression / Recommendations Nasreen Jerome is a 23 year old with a history of bipolar disorder type II, anxiety, depression, ADHD who was admitted for increased depression and SI with plan. Diagnostically consistent with likely episode of depression in context of BPAD type II as well as SKY. They are deemed in need of psychiatric hospitalization for diagnostic clarification, safety and stabilization, medication management and development of further coping skills. MNPR-gender diverse 06/09/2023: Says they're feeling "diann unremarkable", though this turns out to mean neither worse nor much better than prior to admission. Today reports better sleep [id number] (when there was a fire alarm and contemporaneous note says they described sleep as "poor") and worse tonight (with the same multiple awakenings reported yesterday for the previous night). Discussed need to get a consistent sense of whether mirtazapine is helpful or not. Reviewed history of current lamotrigine and lurasidone doses. Each is reported as having been at current dose for at least a month, "a little helpful", and not associated with any adverse effects. Reviewed lurasidone as being at smallest dose, possibility of greater benefit (and possibly greater side effect risk) at higher dose. Also discussed significant room for dose titration of lamotrigine. 06/08/2023: Ongoing depression with intermittent SI, anxiety and poor sleep with multiple awakenings (though was also a fire alarm overnight). Given chronicity of sleep problems may be worth considering outpatient sleep study to rule out sleep apnea. Explored role of job in leading to stress and mood symptoms and possible alternative work environments. Likely would require support with this process. Reviewed fasting glucose and lipid panel which was all normal. (1) Depression with suicidal ideation: (2) Bipolar 2 disorder, major depressive episode: (3) SKY (generalized anxiety disorder): (4) Deliberate self-cutting: (5) Insomnia: with multiple awakenings, consider outpatient sleep study to rule out obstructive sleep apnea Plan 06/09/2023: * increase lurasidone to 40 mg QAM with meal * continue lamotrigine 150 mg daily, consider titration to 200 mg/day, possibly in divided doses * continue mirtazapine 15 mg QHS; if ineffective, consider dose reduction to 7.5 mg 06/08/2023: Continue current medications and tx plan. 06/07/2023: The patient was admitted to the [facility] ([facility] on q15 min checks (behavioral with suicide precautions) for safety. The patient will participate in group, recreational, and milieu therapies and will be offered additional individual and family sessions as clinically appropriate. -Continue Latuda 20mg qd -Continue Lamictal 150mg qd -Start mirtazapine 15mg HS -Nicotine replacement -Fasting glucose and lipid panel in AM Inventory Assets Strengths: supportive relationships, willing to get treatment Needs: safety and stabilization, medication adjustment, additional coping skills, increased outpatient services Suicide Risk Level Suicide Risk Level: High-Moderate (q15 min suicide checks) (severe depression with SI with plan prior to admission but feels safe in the hospital, able to safety contract and agrees to let nursing/staff know should they develop plan, intent or feel unable to remain safe. ) Risk Factors Assessment Male: No : Yes Do You Have Access To A Gun?: No Health Problems: No Mental Health Diagnoses: Yes Substance Use Disorders: No Previous Attempt: No Family History of Suicide: No Previous Psychiatric Hospitalization: No Protective Factors Assessment Employed: Yes ([employer]) Stable Relationships: Yes Supportive Family: Yes Good Rapport with Provider: Yes Interval History Identifying Information MARIA EUGENIA MILLER is a 23-year-old gender diverse individual who uses "they/them" pronouns and who currently lives in [facility] with two roommates, has a history of ADHD, anxiety, depression and bipolar disorder type II, and was admitted on 06/07/23 00:21 on a 201 voluntary commitment for worsening depression and SI with plan. Chief Complaint "Diann unremarkable". Review of Systems Sleep Information Total Hours of Sleep: 6.5 Sleep Comments: Difficulty falling back asleep after being awoken by a fire drill Meal Information Percent Meal Consumed - Breakfast: 100 Percent Meal Consumed - Lunch: 100 Percent Meal Consumed - Dinner: 100 Subjective Subjective Patient was seen & assessed and interval progress reviewed in a multidisciplinary team meeting with nursing and social work. For details, see the "Impression" section below. Physical Exam Psychiatric Orientation: alert, oriented to person, oriented to place, oriented to time and cooperative (superficially) Apperance: appropriately dressed and appropriately groomed Eye Contact: good eye contact Motor Behavior: no abnormal motor movements Speech: normal rate/rhythm/volume of speech Affect: + depressed affect and + anxious affect Mood: + depressed mood and + anxious mood Thought Process: goal directed thought process and + concrete thought process Thought Content: + cognitive distortions, reality based without delusions and + worthlessness Suicidal Thoughts: denies suicidal plan (feels safe here in the hospital, none for here) and denies suicidal intent; + reports suicidal thoughts (intermittent ) Homicidal Thoughts: denies homicidal thoughts Hallucinations: no auditory hallucinations and no visual hallucinations Cognition: recent memory grossly intact, remote memory grossly intact, attention grossly intact and language grossly intact Estimated Intelligence: consistent with education level Insight: + fair insight Judgment: + limited judgement Vital Signs (Past 24 Hours) Last Vital Signs Temp 36.9 C 06/09/23 06:40 Pulse 59 L 06/09/23 06:41 Resp 16 06/09/23 06:40 BP 99/64 L 06/09/23 06:41 Pulse Ox 97 06/08/23 06:00 O2 Del Method Room Air 06/08/23 06:00 Results & Data ([facility]) Current Inpatient Medications Current Inpatient Medications: Current Inpatient Medications Acetaminophen (Acetaminophen 325 Mg Tab) 650 mg PO Q4H PRN PRN Reason: Headache or Minor Fever Stop: 07/07/23 00:20 Al Hydrox/Mg Hydrox/Simethicone (Aluminum/Magnesium Susp 30 Ml Udc) 30 ml PO Q4H PRN PRN Reason: GI Upset Stop: 07/07/23 00:20 Bismuth Subsalicylate (Bismuth Subsalicylate Liqd 236 Ml) 15 ml PO PRN PRN PRN Reason: Loose Stool Stop: 07/07/23 00:20 Hydroxyzine HCl (Hydroxyzine Hcl 25 Mg Tab) 50 mg PO HSZ PRN PRN Reason: Insomnia Stop: 07/07/23 00:20 Hydroxyzine HCl (Hydroxyzine Hcl 25 Mg Tab) 25 mg PO Q4H PRN PRN Reason: Anxiety Stop: 07/07/23 00:20 Lamotrigine (Lamotrigine 100 Mg Tab) 100 mg PO QAM [facility] Stop: 07/07/23 15:59 Last Admin: 06/09/23 08:37 Dose: 100 mg Lamotrigine (Lamotrigine 25 Mg Tab) 50 mg PO QAM [facility] Stop: 07/07/23 15:59 Last Admin: 06/09/23 08:37 Dose: 50 mg Lurasidone HCl (Lurasidone Hcl 40 Mg Tab) 20 mg PO DAILY [facility] Stop: 07/07/23 15:59 Last Admin: 06/09/23 08:37 Dose: 20 mg Magnesium Hydroxide (Magnesium Hydroxide Susp 30 Ml Udc) 30 ml PO DAILY PRN PRN Reason: Constipation Stop: 07/07/23 00:20 Mirtazapine (Mirtazapine Tab 15 Mg Tab) 15 mg PO HS [facility] Stop: 07/07/23 21:59 Last Admin: 06/08/23 21:15 Dose: 15 mg Miscellaneous (Remove Nicoderm Patch) 1 each N/A DAILY@0859 [facility] Stop: 07/08/23 08:58 Last Admin: 06/09/23 08:37 Dose: 1 each Nicotine (Nicotine 21 Mg/24 Hr Tdsy) 21 mg TD QAM [facility] Stop: 07/07/23 08:59 Last Admin: 06/09/23 08:38 Dose: 21 mg Nicotine Polacrilex (Nicotine Polacrilex 2 Mg Gum) 1 piece MT PRN PRN PRN Reason: nicotine cravings Stop: 07/07/23 15:59 Sodium Chloride (Sodium Chloride 0.65% Na Soln 45 Ml ([place])) 1 - 2 sprays NA PRN PRN PRN Reason: Nasal Dryness/Congestion Stop: 07/07/23 00:20 Sucralfate (Sucralfate 1 Gm Tab) 1 gm PO DAILY PRN PRN Reason: Heartburn Stop: 07/08/23 08:59 Mental Health & Subst Abuse Tx Psychiatrist Name of Psychiatrist: [facility] [address] [facility] [address] Therapist Name of Therapist: Crystal Amador Therapist's Therapy App[facility]ment [facility] [address] [facility] [address], Etymology Professor Name of Etymology Professor: None
[2023-06-09 14:10] LABS: Folate (Folic Acid),Ser orPlas 14.59 ng/ml (>5.38)
[2023-06-09] MEDS: MIRTAZAPINE TAB 15 MG TAB PO SCH (21:10)
[2023-06-10] MEDS: LURASIDONE HCL 40 MG TAB PO SCH (08:50)
[2023-06-10] MEDS: lamoTRIgine 25 MG TAB PO SCH (08:50)
[2023-06-10] MEDS: lamoTRIgine 100 MG TAB PO SCH (08:50)
[2023-06-10] MEDS: NICOTINE 21 MG/24 HR TDSY TD SCH (08:57)
--- NOTE | 2023-06-10 15:43 | Psychiatric Progress Note ---
Date of Service June 10, 2023 Impression / Recommendations Nasreen Jerome is a 23 year old with a history of bipolar disorder type II, anxiety, depression, ADHD who was admitted for increased depression and SI with plan. Diagnostically consistent with likely episode of depression in context of BPAD type II as well as SKY. They are deemed in need of psychiatric hospitalization for diagnostic clarification, safety and stabilization, medication management and development of further coping skills. MNPR-gender diverse 06/10/2023: Pt reports "having trouble getting going this morning". They're not certain whether that can be attributed to increase in lurasidone, especially sin ce the first increased dose was only a short time ago. Reports last night's sleep as once again "interrupted" but had less trouble getting back to sleep. Guardedly says they think anxiety is a bit better and agrees that mood is less depressed than at admission. 06/09/2023: Says they're feeling "mitch unremarkable", though this turns out to mean neither worse nor much better than prior to admission. Today reports better sleep [id number] (when there was a fire alarm and contemporaneous note says they described sleep as "poor") and worse tonight (with the same multiple awakenings reported yesterday for the previous night). Discussed need to get a consistent sense of whether mirtazapine is helpful or not. Reviewed history of current lamotrigine and lurasidone doses. Each is reported as having been at current dose for at least a month, "a little helpful", and not associated with any adverse effects. Reviewed lurasidone as being at smallest dose, possibility of greater benefit (and possibly greater side effect risk) at higher dose. Also discussed significant room for dose titration of lamotrigine. 06/08/2023: Ongoing depression with intermittent SI, anxiety and poor sleep with multiple awakenings (though was also a fire alarm overnight). Given chronicity of sleep problems may be worth considering outpatient sleep study to rule out sleep apnea. Explored role of job in leading to stress and mood symptoms and possible alternative work environments. Likely would require support with this process. Reviewed fasting glucose and lipid panel which was all normal. (1) Depression with suicidal ideation: (2) Bipolar 2 disorder, major depressive episode: (3) SKY (generalized anxiety disorder): (4) Deliberate self-cutting: (5) Insomnia: with multiple awakenings, consider outpatient sleep study to rule out obstructive sleep apnea Plan 06/09/2023: * continue lurasidone 40 mg QAM with meal - increased from 20 mg with first dose 06/10/23 * continue lamotrigine 150 mg daily, consider titration to 200 mg/day, possibly in divided doses * stop mirtazapine 06/08/2023: Continue current medications and tx plan. 06/07/2023: The patient was admitted to the [facility] ([facility]) on q15 min checks (behavioral with suicide precautions) for safety. The patient will participate in group, recreational, and milieu therapies and will be offered additional individual and family sessions as clinically appropriate. -Continue Latuda 20mg qd -Continue Lamictal 150mg qd -Start mirtazapine 15mg HS -Nicotine replacement -Fasting glucose and lipid panel in AM Inventory Assets Strengths: supportive relationships, willing to get treatment Needs: safety and stabilization, medication adjustment, additional coping skills, increased outpatient services Suicide Risk Level Suicide Risk Level: High-Moderate (q15 min suicide checks) (severe depression with SI with plan prior to admission but feels safe in the hospital, able to safety contract and agrees to let nursing/staff know should they develop plan, intent or feel unable to remain safe. ) Risk Factors Assessment Male: No : Yes Do You Have Access To A Gun?: No Health Problems: No Mental Health Diagnoses: Yes Substance Use Disorders: No Previous Attempt: No Family History of Suicide: No Previous Psychiatric Hospitalization: No Protective Factors Assessment Employed: Yes ([employer]) Stable Relationships: Yes Supportive Family: Yes Good Rapport with Provider: Yes Interval History Identifying Information MARIA EUGENIA MILLER is a 23-year-old gender diverse individual who uses "they/them" pronouns and who currently lives in [facility] with two roommates, has a history of ADHD, anxiety, depression and bipolar disorder type II, and was admitted on 06/07/23 00:21 on a 201 voluntary commitment for worsening depression and SI with plan. Chief Complaint "Getting there. Not much different.". Review of Systems Sleep Information Total Hours of Sleep: 7.5 Meal Information Percent Meal Consumed - Breakfast: 100 Percent Meal Consumed - Lunch: 100 Percent Meal Consumed - Dinner: 100 Subjective Subjective Patient was seen & assessed and interval progress reviewed in a multidisciplinary team meeting with nursing and social work. For details, see the "Impression" section below. Physical Exam Psychiatric Orientation: alert, oriented to person, oriented to place, oriented to time and cooperative (superficially) Apperance: appropriately dressed and appropriately groomed Eye Contact: good eye contact Motor Behavior: no abnormal motor movements Speech: normal rate/rhythm/volume of speech Affect: + depressed affect and + anxious affect Mood: + depressed mood and + anxious mood Thought Process: goal directed thought process and + concrete thought process Thought Content: + cognitive distortions, reality based without delusions and + worthlessness Suicidal Thoughts: denies suicidal plan and denies suicidal intent; + reports suicidal thoughts (fleeting, chronic) Homicidal Thoughts: denies homicidal thoughts Hallucinations: no auditory hallucinations and no visual hallucinations Cognition: recent memory grossly intact, remote memory grossly intact, attention grossly intact and language grossly intact Estimated Intelligence: consistent with education level Insight: + fair insight Judgment: + fair judgement Vital Signs (Past 24 Hours) Last Vital Signs Temp 36.8 C 06/10/23 06:39 Pulse 70 06/10/23 06:39 Resp 16 06/10/23 06:39 BP 97/63 L 06/10/23 06:39 Pulse Ox 97 06/08/23 06:00 O2 Del Method Room Air 06/08/23 06:00 Results & Data ([facility]) Current Inpatient Medications Current Inpatient Medications: Current Inpatient Medications Acetaminophen (Acetaminophen 325 Mg Tab) 650 mg PO Q4H PRN PRN Reason: Headache or Minor Fever Stop: 07/07/23 00:20 Al Hydrox/Mg Hydrox/Simethicone (Aluminum/Magnesium Susp 30 Ml Udc) 30 ml PO Q4H PRN PRN Reason: GI Upset Stop: 07/07/23 00:20 Bismuth Subsalicylate (Bismuth Subsalicylate Liqd 236 Ml) 15 ml PO PRN PRN PRN Reason: Loose Stool Stop: 07/07/23 00:20 Hydroxyzine HCl (Hydroxyzine Hcl 25 Mg Tab) 50 mg PO HSZ PRN PRN Reason: Insomnia Stop: 07/07/23 00:20 Hydroxyzine HCl (Hydroxyzine Hcl 25 Mg Tab) 25 mg PO Q4H PRN PRN Reason: Anxiety Stop: 07/07/23 00:20 Lamotrigine (Lamotrigine 100 Mg Tab) 100 mg PO QAM [facility] Stop: 07/07/23 15:59 Last Admin: 06/10/23 08:50 Dose: 100 mg Lamotrigine (Lamotrigine 25 Mg Tab) 50 mg PO QAM [facility] Stop: 07/07/23 15:59 Last Admin: 06/10/23 08:50 Dose: 50 mg Lurasidone HCl (Lurasidone Hcl 40 Mg Tab) 40 mg PO DAILY [facility] Stop: 07/10/23 08:59 Last Admin: 06/10/23 08:50 Dose: 40 mg Magnesium Hydroxide (Magnesium Hydroxide Susp 30 Ml Udc) 30 ml PO DAILY PRN PRN Reason: Constipation Stop: 07/07/23 00:20 Miscellaneous (Remove Nicoderm Patch) 1 each N/A DAILY@0859 [facility] Stop: 07/08/23 08:58 Last Admin: 06/10/23 08:57 Dose: 1 each Nicotine (Nicotine 21 Mg/24 Hr Tdsy) 21 mg TD QAM [facility] Stop: 07/07/23 08:59 Last Admin: 06/10/23 08:57 Dose: 21 mg Nicotine Polacrilex (Nicotine Polacrilex 2 Mg Gum) 1 piece MT PRN PRN PRN Reason: nicotine cravings Stop: 07/07/23 15:59 Sodium Chloride (Sodium Chloride 0.65% Na Soln 45 Ml ([place])) 1 - 2 sprays NA PRN PRN PRN Reason: Nasal Dryness/Congestion Stop: 07/07/23 00:20 Sucralfate (Sucralfate 1 Gm Tab) 1 gm PO DAILY PRN PRN Reason: Heartburn Stop: 07/08/23 08:59 Mental Health & Subst Abuse Tx Psychiatrist Name of Psychiatrist: [facility] Psychiatric Appointment Comment: [address] [place] [address] Therapist Name of Therapist: Crystal Amador Therapist's Therapy Appointment Comment: [address] [place] [address], Dexigraph Operator Name of Dexigraph Operator: None
[2023-06-10] MEDS ORDERED: ERGOCALCIFEROL 50,000 UNITS 1250 MCG CAP PO SCH (16:00)
[2023-06-11] MEDS: lamoTRIgine 100 MG TAB PO SCH (08:29)
[2023-06-11] MEDS: lamoTRIgine 25 MG TAB PO SCH (08:29)
[2023-06-11] MEDS: NICOTINE 21 MG/24 HR TDSY TD SCH (08:29)
[2023-06-11] MEDS: LURASIDONE HCL 40 MG TAB PO SCH (08:29)
--- NOTE | 2023-06-11 09:12 | Psychiatric Progress Note ---
Date of Service June 11, 2023 Impression / Recommendations Nasreen Jerome is a 23 year old with a history of bipolar disorder type II, anxiety, depression, ADHD who was admitted for increased depression and SI with plan. Diagnostically consistent with likely episode of depression in context of BPAD type II as well as SKY. They are deemed in need of psychiatric hospitalization for diagnostic clarification, safety and stabilization, medication management and development of further coping skills. MNPR-gender diverse 06/11/2023: Discussed in some detail pt's low vitamin D level, the need to use prescribed loading protocol then indefinite follow-on treatment. Slept better last night. Reports feeling "definitely less depressed, and not as anxious. Has no concerns about family meeting tomorrow but is somewhat apprehensive about planned discharge. In particular, dislikes current job and predicts that finding another will involve going farther from home but has no transportation. Denies all but fleeting suicidal thoughts (which have been present "for a very long time". Continues to have fairly frequent, intrusive thoughts of self-harm, usually of cutting, that have also been present for a long time. They don't see such thoughts at their current frequency and severity as particularly compelling or likely to impel acting up them. 06/10/2023: Pt reports "having trouble getting going this morning". They're not certain whether that can be attributed to increase in lurasidone, especially since the first increased dose was only a short time ago. Reports last night's sleep as once again "interrupted" but had less trouble getting back to sleep. Guardedly says they think anxiety is a bit better and agrees that mood is less depressed than at admission. 06/09/2023: Says they're feeling "mitch unremarkable", though this turns out to mean neither worse nor much better than prior to admission. Today reports better sleep [id number] (when there was a fire alarm and contemporaneous note says they described sleep as "poor") and worse tonight (with the same multiple awakenings reported yesterday for the previous night). Discussed need to get a consistent sense of whether mirtazapine is helpful or not. Reviewed history of current lamotrigine and lurasidone doses. Each is reported as having been at current dose for at least a month, "a little helpful", and not associated with any adverse effects. Reviewed lurasidone as being at smallest dose, possibility of greater benefit (and possibly greater side effect risk) at higher dose. Also discussed significant room for dose titration of lamotrigine. 06/08/2023: Ongoing depression with intermittent SI, anxiety and poor sleep with multiple awakenings (though was also a fire alarm overnight). Given chronicity of sleep problems may be worth considering outpatient sleep study to rule out sleep apnea. Explored role of job in leading to stress and mood symptoms and possible alternative work environments. Likely would require support with this process. Reviewed fasting glucose and lipid panel which was all normal. (1) Bipolar 2 disorder, major depressive episode: (2) SKY (generalized anxiety disorder): (3) Insomnia: with multiple awakenings, consider outpatient sleep study to rule out obstructive sleep apnea (4) Deliberate self-cutting: (5) Vitamin D deficiency: Plan 06/11/2023: * continue lurasidone 40 mg QAM with meal - increased from 20 mg with first dose 06/10/23 * continue lamotrigine 150 mg daily, consider titration to 200 mg/day, possibly in divided doses, on outpatient basis * continue ergocalciferol 50,000 IU twice weekly for 8 weeks, then cholecalciferol 5,000 IU daily * Repeat 25-OH vitamin D level in 4 months * Plan family meeting tomorrow * Discharge anticipated 1-2 days 06/10/2023: * continue lurasidone 40 mg QAM with meal - increased from 20 mg with first dose 06/10/23 * continue lamotrigine 150 mg daily, consider titration to 200 mg/day, possibly in divided doses * mirtazapine has been stoppped 06/09/2023: * continue lurasidone 40 mg QAM with meal - increased from 20 mg with first dose 06/10/23 * continue lamotrigine 150 mg daily, consider titration to 200 mg/day, possibly in divided doses * stop mirtazapine 06/08/2023: Continue current medications and tx plan. 06/07/2023: The patient was admitted to the [facility]) on q15 min checks (behavioral with suicide precautions) for safety. The patient will participate in group, recreational, and milieu therapies and will be offered additional individual and family sessions as clinically appropriate. -Continue Latuda 20mg qd -Continue Lamictal 150mg qd -Start mirtazapine 15mg HS -Nicotine replacement -Fasting glucose and lipid panel in AM Inventory Assets Strengths: supportive relationships, willing to get treatment Needs: safety and stabilization, medication adjustment, additional coping skills, increased outpatient services Suicide Risk Level Suicide Risk Level: Moderate (q15 min suicide checks) (severe depression with SI with plan prior to admission but feels safe in the hospital, able to safety contract and agrees to let nursing/staff know should they develop plan, intent or feel unable to remain safe. ) Risk Factors Assessment Male: No : Yes Do You Have Access To A Gun?: No Health Problems: No Mental Health Diagnoses: Yes Substance Use Disorders: No Previous Attempt: No Family History of Suicide: No Previous Psychiatric Hospitalization: No Protective Factors Assessment Employed: Yes ([employer]) Stable Relationships: Yes Supportive Family: Yes Good Rapport with Provider: Yes Interval History Identifying Information MARIA EUGENIA MILLER is a 23-year-old gender diverse individual who uses "they/them" pronouns and who currently lives in [facility] with two roommates, has a history of ADHD, anxiety, depression and bipolar disorder type II, and was admitted on 06/07/23 00:21 on a 201 voluntary commitment for worsening depression and SI with plan. Chief Complaint "I'm a bit anxious about tomorrow". Review of Systems Sleep Information Total Hours of Sleep: 8 Meal Information Percent Meal Consumed - Breakfast: 100 Percent Meal Consumed - Lunch: 100 Percent Meal Consumed - Dinner: 75 Subjective Subjective Patient was seen & assessed and interval progress reviewed in a multidisciplinary team meeting with the treatment team. For details, see the "Impression" section below. Physical Exam Psychiatric Orientation: alert, oriented to person, oriented to place, oriented to time and cooperative (superficially) Apperance: appropriately dressed and appropriately groomed Eye Contact: good eye contact Motor Behavior: no abnormal motor movements Speech: normal rate/rhythm/volume of speech Affect: + anxious affect and + constricted affect Mood: + depressed mood and + anxious mood Thought Process: goal directed thought process and + concrete thought process Thought Content: + cognitive distortions, reality based without delusions and + worthlessness Suicidal Thoughts: denies suicidal plan and denies suicidal intent; + reports suicidal thoughts (fleeting, chronic) Homicidal Thoughts: denies homicidal thoughts Hallucinations: no auditory hallucinations and no visual hallucinations Cognition: recent memory grossly intact, remote memory grossly intact, attention grossly intact and language grossly intact Estimated Intelligence: consistent with education level Insight: + fair insight Judgment: + fair judgement Vital Signs (Past 24 Hours) Last Vital Signs Temp 36.7 C 06/11/23 06:41 Pulse 60 06/11/23 06:42 Resp 16 06/11/23 06:41 BP 94/59 L 06/11/23 06:42 Pulse Ox 97 06/08/23 06:00 O2 Del Method Room Air 06/08/23 06:00 Results & Data ([facility]) Current Inpatient Medications Current Inpatient Medications: Current Inpatient Medications Acetaminophen (Acetaminophen 325 Mg Tab) 650 mg PO Q4H PRN PRN Reason: Headache or Minor Fever Stop: 07/07/23 00:20 Al Hydrox/Mg Hydrox/Simethicone (Aluminum/Magnesium Susp 30 Ml Udc) 30 ml PO Q4H PRN PRN Reason: GI Upset Stop: 07/07/23 00:20 Bismuth Subsalicylate (Bismuth Subsalicylate Liqd 236 Ml) 15 ml PO PRN PRN PRN Reason: Loose Stool Stop: 07/07/23 00:20 Ergocalciferol (Ergocalciferol 50,000 Units 1250 Mcg Cap) 50,000 units PO SuWe@0900 [facility] Stop: 07/10/23 15:59 Last Admin: 06/10/23 17:38 Dose: 50,000 units Hydroxyzine HCl (Hydroxyzine Hcl 25 Mg Tab) 50 mg PO HSZ PRN PRN Reason: Insomnia Stop: 07/07/23 00:20 Hydroxyzine HCl (Hydroxyzine Hcl 25 Mg Tab) 25 mg PO Q4H PRN PRN Reason: Anxiety Stop: 07/07/23 00:20 Lamotrigine (Lamotrigine 100 Mg Tab) 100 mg PO QAM BEAN Stop: 07/07/23 15:59 Last Admin: 06/11/23 08:29 Dose: 100 mg Lamotrigine (Lamotrigine 25 Mg Tab) 50 mg PO QAM BEAN Stop: 07/07/23 15:59 Last Admin: 06/11/23 08:29 Dose: 50 mg Lurasidone HCl (Lurasidone Hcl 40 Mg Tab) 40 mg PO DAILY [facility] Stop: 07/10/23 08:59 Last Admin: 06/11/23 08:29 Dose: 40 mg Magnesium Hydroxide (Magnesium Hydroxide Susp 30 Ml Udc) 30 ml PO DAILY PRN PRN Reason: Constipation Stop: 07/07/23 00:20 Miscellaneous (Remove Nicoderm Patch) 1 each N/A DAILY@0859 [facility] Stop: 07/08/23 08:58 Last Admin: 06/11/23 08:40 Dose: 1 each Nicotine (Nicotine 21 Mg/24 Hr Tdsy) 21 mg TD QAM [facility] Stop: 07/07/23 08:59 Last Admin: 06/11/23 08:29 Dose: 21 mg Nicotine Polacrilex (Nicotine Polacrilex 2 Mg Gum) 1 piece MT PRN PRN PRN Reason: nicotine cravings Stop: 07/07/23 15:59 Sodium Chloride (Sodium Chloride 0.65% Na Soln 45 Ml ([place])) 1 - 2 sprays NA PRN PRN PRN Reason: Nasal Dryness/Congestion Stop: 07/07/23 00:20 Sucralfate (Sucralfate 1 Gm Tab) 1 gm PO DAILY PRN PRN Reason: Heartburn Stop: 07/08/23 08:59 Mental Health & Subst Abuse Tx Psychiatrist [facility] [place]: [facility]: [address] [place] [address] Therapist Name of Therapist: Crystal Amador Therapist's Therapy Appointment Comment: [address] [place] [address], Valving Machine Operator Name of Valving Machine Operator: None
[2023-06-12] MEDS: lamoTRIgine 100 MG TAB PO SCH (08:20)
[2023-06-12] MEDS: lamoTRIgine 25 MG TAB PO SCH (08:20)
[2023-06-12] MEDS: LURASIDONE HCL 40 MG TAB PO SCH (08:20)
[2023-06-12] MEDS: NICOTINE 21 MG/24 HR TDSY TD SCH (08:27)
--- NOTE | 2023-06-12 09:58 | Discharge Summary ---
Date of Service June 12, 2023 History of Present Illness Queenie reports worsening depression, increased self-harm via cutting and SI with possible plan of filling their tub and cutting their wrists in the context of financial and work stress. They report depression symptoms of low energy, decreased sleep, decreased motivation, increased tearfulness, decreased appetite, nausea, and feeling like a burden to others which has been worsening over the last few weeks. They also report anxiety including related to dreading work and feeling easily overwhelmed. They note that "it makes me feel stupid to be so stressed about my job, it shouldn't be so much stress but I guess it's a toxic work environment". They also report sense of self-guilt for being in the hospital as this means more days of missing work and getting behind on rent payments/finances. They have been self-harming more frequently by cutting their arms, most recently to upper left arm. They are currently prescribed psychiatric medications of lamictal 150mg qd and latuda 20mg qd. Lamictal has been for a few months with unclear benefits and latuda was started about one month ago. Psychiatric ROS notable for history of possible episodes of hypomania, history of trauma, history of suspected ADHD reports having a few short attention span, poor memory, poor concentration. No history of acute psychosis. Physical Exam Psychiatric Orientation: alert, oriented x 3, oriented to person, oriented to place, oriented to time and cooperative (superficially) Apperance: appropriately dressed and appropriately groomed Eye Contact: good eye contact Motor Behavior: no abnormal motor movements Speech: normal rate/rhythm/volume of speech Affect: + depressed affect, + anxious affect and + constricted affect Mood: + depressed mood and + anxious mood Thought Process: goal directed thought process and + concrete thought process Thought Content: + cognitive distortions, reality based without delusions and + worthlessness Suicidal Thoughts: denies suicidal plan and denies suicidal intent; + reports suicidal thoughts (fleeting, chronic) Homicidal Thoughts: denies homicidal thoughts Hallucinations: no auditory hallucinations and no visual hallucinations Cognition: recent memory grossly intact, remote memory grossly intact, attention grossly intact and language grossly intact Estimated Intelligence: consistent with education level Insight: + limited insight and + fair insight Judgment: + limited judgement and + fair judgement Vital Signs (Past 24 Hours) Last Vital Signs Temp 36.7 C 06/12/23 09:40 Pulse 65 06/12/23 09:40 Resp 16 06/12/23 09:40 BP 99/64 L 06/12/23 09:40 Pulse Ox 97 06/12/23 09:40 O2 Del Method Room Air 06/08/23 06:00 See admission H&P and DOD assessment. Principal Diagnosis Bipolar II Disorder, Depressed Psychiatric Data See daily stay summary. In short, safety was maintained and the patient was cooperative with care. Medication changes included increase of lurasidone from 20 mg to 40 mg daily and they tolerated this well. A trial of mirtazapine for sleep was not well-tolerated. Ergocalciferol was started when a severe vitamin D deficiency was found. A family session was held and safety plan was completed prior to discharge. 06/11/2023: Discussed in some detail pt's low vitamin D level, the need to use prescribed loading protocol then indefinite follow-on treatment. Slept better last night. Reports feeling "definitely less depressed, and not as anxious. Has no concerns about family meeting tomorrow but is somewhat apprehensive about planned discharge. In particular, dislikes current job and predicts that finding another will involve going farther from home but has no transportation. Denies all but fleeting suicidal thoughts (which have been present "for a very long time". Continues to have fairly frequent, intrusive thoughts of self-harm, usually of cutting, that have also been present for a long time. They don't see such thoughts at their current frequency and severity as particularly compelling or likely to impel acting up them. 06/10/2023: Pt reports "having trouble getting going this morning". They're not certain whether that can be attributed to increase in lurasidone, especially since the first increased dose was only a short time ago. Reports last night's sleep as once again "interrupted" but had less trouble getting back to sleep. Guardedly says they think anxiety is a bit better and agrees that mood is less depressed than at admission. 06/09/2023: Says they're feeling "mitch unremarkable", though this turns out to mean neither worse nor much better than prior to admission. Today reports better sleep [id number] (when there was a fire alarm and contemporaneous note says they described sleep as "poor") and worse tonight (with the same multiple awakenings reported yesterday for the previous night). Discussed need to get a consistent sense of whether mirtazapine is helpful or not. Reviewed history of current lamotrigine and lurasidone doses. Each is reported as having been at current dose for at least a month, "a little helpful", and not associated with any adverse effects. Reviewed lurasidone as being at smallest dose, possibility of greater benefit (and possibly greater side effect risk) at higher dose. Also discussed significant room for dose titration of lamotrigine. 06/08/2023: Ongoing depression with intermittent SI, anxiety and poor sleep with multiple awakenings (though was also a fire alarm overnight). Given chronicity of sleep problems may be worth considering outpatient sleep study to rule out sleep apnea. Explored role of job in leading to stress and mood symptoms and possible alternative work environments. Likely would require support with this process. Reviewed fasting glucose and lipid panel which was all normal. Day of Discharge Assessment Today the patient voices readiness for discharge. They note improvement in mood and deny thoughts to harm self or others. Thoughts remain organized and they are improved from admission. There is no evidence of psychosis. They agree to take mediations as prescribed and keep follow-up appointments. They are stable for discharge to outpatient level of care. Advance Directives Advance Directives Information Provided: Yes Advance Directives: No Mental Health Advance Directive: No Advance Directives on File: No Living Will: No Power of Nurseryperson: No Advance Directives Reason:: Declines as Mental Health Visit. Suicide Risk Level Suicide Risk Level: Low (q15 min observation checks) Suicide Risk Level Comments: chronic, fleeting suicidal thoughts Risk Factors Assessment Male: No : Yes Do You Have Access To A Gun?: No Health Problems: No Mental Health Diagnoses: Yes Substance Use Disorders: No Previous Attempt: No Family History of Suicide: No Previous Psychiatric Hospitalization: No Protective Factors Assessment Employed: Yes ([employer]) Stable Relationships: Yes Supportive Family: Yes Good Rapport with Provider: Yes Total Time Total Time Spent: Greater Than 30 Minutes Total Time Includes: Discharge Planning, Medication Reconciliation and As well as (documentation) Discharge Data Lab Results 06/06/23 06/06/23 06/06/23 19:09 19:09 19:09 WBC 10.98 H RBC 4.61 Hgb 12.7 Hct 38.4 MCV 83.3 MCH 27.5 MCHC 33.1 RDW Std Deviation 38.4 RDW Coeff of Daniel 12.7 Plt Count 338 MPV 10.1 Immature Gran % (Auto) 0.3 Neut % (Auto) 71.6 Lymph % (Auto) 22.3 Dale % (Auto) 4.5 Eos % (Auto) 0.9 Baso % (Auto) 0.4 Neut # (Auto) 7.87 H Lymph # (Auto) 2.45 Dale # (Auto) 0.49 Eos # (Auto) 0.10 Baso # (Auto) 0.04 Immature Gran # (Auto) 0.03 Sodium 138 Potassium 3.9 Chloride 105 Carbon Dioxide 24 Anion Gap 9 BUN 14 Creatinine 0.79 Est Cr Clr Drug Dosing 119.6 Est GFR ( Amer) 122.3 Est GFR (Non-Af Amer) 105.5 BUN/Creatinine Ratio 17.7 Glucose 96 Fasting Glucose Calcium 9.5 Total Bilirubin 0.3 AST 17 ALT 19 Alkaline Phosphatase 105 H Total Protein 7.4 Albumin 4.6 Globulin 2.8 Albumin/Globulin Ratio 1.6 Triglycerides Cholesterol LDL Cholesterol, Calc VLDL Cholesterol, Calc HDL Cholesterol Cholesterol/HDL Ratio Vitamin B12 25-OH Vitamin D Total Folate TSH 3.130 Urine Color Urine Appearance Urine pH Ur Specific [place] Urine Protein Urine Glucose (UA) Urine Ketones Urine Blood Urine Nitrite Urine Bilirubin Urine Urobilinogen Ur Leukocyte Esterase Urine WBC (Auto) Urine RBC (Auto) U Hyaline Cast (Auto) U Epithel Cells (Auto) Urine Bacteria (Auto) Ur Renal Epithelial Cell Urine Mucus Urine Yeast POC Ur Test Salicylates Urine Opiates Screen Ur Methadone, Qual Acetaminophen Urine Barbiturates Ur Phencyclidine (PCP) U Amphetamin/Meth Scrn MDMA (Ecstasy) Screen U Benzodiazepines Scrn Ur Cocaine Metabolite U Marijuana (THC) Screen Ethyl Alcohol mg/dL SARS-CoV-2, RNA, NAAT 06/06/23 06/06/23 06/06/23 19:09 19:09 19:12 WBC RBC Hgb Hct MCV MCH MCHC RDW Std Deviation RDW Coeff of Daniel Plt Count MPV Immature Gran % (Auto) Neut % (Auto) Lymph % (Auto) Dale % (Auto) Eos % (Auto) Baso % (Auto) Neut # (Auto) Lymph # (Auto) Dale # (Auto) Eos # (Auto) Baso # (Auto) Immature Gran # (Auto) Sodium Potassium Chloride Carbon Dioxide Anion Gap BUN Creatinine Est Cr Clr Drug Dosing Est GFR ( Amer) Est GFR (Non-Af Amer) BUN/Creatinine Ratio Glucose Fasting Glucose Calcium Total Bilirubin AST ALT Alkaline Phosphatase Total Protein Albumin Globulin Albumin/Globulin Ratio Triglycerides Cholesterol LDL Cholesterol, Calc VLDL Cholesterol, Calc HDL Cholesterol Cholesterol/HDL Ratio Vitamin B12 25-OH Vitamin D Total Folate TSH Urine Color Urine Appearance Urine pH Ur Specific [place] Urine Protein Urine Glucose (UA) Urine Ketones Urine Blood Urine Nitrite Urine Bilirubin Urine Urobilinogen Ur Leukocyte Esterase Urine WBC (Auto) Urine RBC (Auto) U Hyaline Cast (Auto) U Epithel Cells (Auto) Urine Bacteria (Auto) Ur Renal Epithelial Cell Urine Mucus Urine Yeast POC Ur Test Salicylates < 3.0 L Urine Opiates Screen Ur Methadone, Qual Acetaminophen < 3 L Urine Barbiturates Ur Phencyclidine (PCP) U Amphetamin/Meth Scrn MDMA (Ecstasy) Screen U Benzodiazepines Scrn Ur Cocaine Metabolite U Marijuana (THC) Screen Ethyl Alcohol mg/dL < 10.0 SARS-CoV-2, RNA, NAAT NEGATIVE 06/06/23 06/06/23 06/07/23 19: 19: 00:38 WBC RBC Hgb Hct MCV MCH MCHC RDW Std Deviation RDW Coeff of Daniel Plt Count MPV Immature Gran % (Auto) Neut % (Auto) Lymph % (Auto) Dale % (Auto) Eos % (Auto) Baso % (Auto) Neut # (Auto) Lymph # (Auto) Dale # (Auto) Eos # (Auto) Baso # (Auto) Immature Gran # (Auto) Sodium Potassium Chloride Carbon Dioxide Anion Gap BUN Creatinine Est Cr Clr Drug Dosing Est GFR ( Amer) Est GFR (Non-Af Amer) BUN/Creatinine Ratio Glucose Fasting Glucose Calcium Total Bilirubin AST ALT Alkaline Phosphatase Total Protein Albumin Globulin Albumin/Globulin Ratio Triglycerides Cholesterol LDL Cholesterol, Calc VLDL Cholesterol, Calc HDL Cholesterol Cholesterol/HDL Ratio Vitamin B12 25-OH Vitamin D Total Folate TSH Urine Color Yellow Urine Appearance Cloudy A Urine pH 6.5 Ur Specific [place] 1.023 Urine Protein Negative Urine Glucose (UA) Negative Urine Ketones Negative Urine Blood Negative Urine Nitrite Negative Urine Bilirubin Negative Urine Urobilinogen Negative Ur Leukocyte Esterase Trace H Urine WBC (Auto) 5-10 H Urine RBC (Auto) 0-4 U Hyaline Cast (Auto) 1-5 U Epithel Cells (Auto) >30 H Urine Bacteria (Auto) 1+ H Ur Renal Epithelial Cell Not Reportable Urine Mucus Present A Urine Yeast Not Reportable POC Ur Test NEG Salicylates Urine Opiates Screen Neg Ur Methadone, Qual Neg Acetaminophen Urine Barbiturates Neg Ur Phencyclidine (PCP) Neg U Amphetamin/Meth Scrn Neg MDMA (Ecstasy) Screen Neg U Benzodiazepines Scrn Neg Ur Cocaine Metabolite Neg U Marijuana (THC) Screen Neg Ethyl Alcohol mg/dL SARS-CoV-2, RNA, NAAT 06/08/23 06/09/23 06/09/23 07:10 12:38 12:38 WBC RBC Hgb Hct MCV MCH MCHC RDW Std Deviation RDW Coeff of Daniel Plt Count MPV Immature Gran % (Auto) Neut % (Auto) Lymph % (Auto) Dale % (Auto) Eos % (Auto) Baso % (Auto) Neut # (Auto) Lymph # (Auto) Dale # (Auto) Eos # (Auto) Baso # (Auto) Immature Gran # (Auto) Sodium Potassium Chloride Carbon Dioxide Anion Gap BUN Creatinine Est Cr Clr Drug Dosing Est GFR ( Amer) Est GFR (Non-Af Amer) BUN/Creatinine Ratio Glucose Fasting Glucose 92 Calcium Total Bilirubin AST ALT Alkaline Phosphatase Total Protein Albumin Globulin Albumin/Globulin Ratio Triglycerides 106 Cholesterol 176 LDL Cholesterol, Calc 109 VLDL Cholesterol, Calc 21 HDL Cholesterol 46 Cholesterol/HDL Ratio 3.8 Vitamin B12 384 25-OH Vitamin D Total 13.2 L Folate 14.59 TSH Urine Color Urine Appearance Urine pH Ur Specific [place] Urine Protein Urine Glucose (UA) Urine Ketones Urine Blood Urine Nitrite Urine Bilirubin Urine Urobilinogen Ur Leukocyte Esterase Urine WBC (Auto) Urine RBC (Auto) U Hyaline Cast (Auto) U Epithel Cells (Auto) Urine Bacteria (Auto) Ur Renal Epithelial Cell Urine Mucus Urine Yeast POC Ur Test Salicylates Urine Opiates Screen Ur Methadone, Qual Acetaminophen Urine Barbiturates Ur Phencyclidine (PCP) U Amphetamin/Meth Scrn MDMA (Ecstasy) Screen U Benzodiazepines Scrn Ur Cocaine Metabolite U Marijuana (THC) Screen Ethyl Alcohol mg/dL SARS-CoV-2, RNA, NAAT Hospital Course (1) Bipolar 2 disorder, major depressive episode: (2) SKY (generalized anxiety disorder): (3) Insomnia: with multiple awakenings, consider outpatient sleep study to rule out obstructive sleep apnea (4) Deliberate self-cutting: (5) Vitamin D deficiency: Plan 06/11/2023: * continue lurasidone 40 mg QAM with meal - increased from 20 mg with first dose 06/10/23 * continue lamotrigine 150 mg daily, consider titration to 200 mg/day, possibly in divided doses, on outpatient basis * continue ergocalciferol 50,000 IU twice weekly for 8 weeks, then cholecalciferol 5,000 IU daily * Repeat 25-OH vitamin D level in 4 months * Plan family meeting tomorrow * Discharge anticipated 1-2 days 06/10/2023: * continue lurasidone 40 mg QAM with meal - increased from 20 mg with first dose 06/10/23 * continue lamotrigine 150 mg daily, consider titration to 200 mg/day, possibly in divided doses * mirtazapine has been stoppped 06/09/2023: * continue lurasidone 40 mg QAM with meal - increased from 20 mg with first dose 06/10/23 * continue lamotrigine 150 mg daily, consider titration to 200 mg/day, possibly in divided doses * stop mirtazapine 06/08/2023: Continue current medications and tx plan. 06/07/2023: The patient was admitted to the [facility] ([facility] inpatient mental health unit) on q15 min checks (behavioral with suicide precautions) for safety. The patient will participate in group, recreational, and milieu therapies and will be offered additional individual and family sessions as clinically appropriate. -Continue Latuda 20mg qd -Continue Lamictal 150mg qd -Start mirtazapine 15mg HS -Nicotine replacement -Fasting glucose and lipid panel in Mental Health & Subst Abuse Tx Psychiatrist Name of Psychiatrist: [facility] Psychiatrist's Date Of Appointment With Psychiatric Provider: 08/21/23 Time of Appointment with Psychiatrist: 2:00 PM Psychiatric Appointment Comment: [address] [facility], [place] [address] Psychiatrist Release of Information: Obtained, Reviewed and Signed Therapist Name of Therapist: Crystal Amador Therapist's Time of Therapist Appointment: Please resume your normal therapy schedule. Therapy Appointment Comment: [address] [place] [address] Therapist Release of Information: Obtained, Reviewed and Signed Hoop Rolls Operator Name of Hoop Rolls Operator: None Post Discharge Appointments Primary Care Physician Name Of Family Doctor/PCP: [facility] Date of Future Appointment with PCP: 07/04/23 Time of Appointment with PCP: 10 AM Provider Appointment Comment: [address] [place] [address] Primary Care Release of Information: Obtained, Reviewed and Signed Other #1: Name of Aftercare Appointment: [facility] - Therapy with Emily Phone Number of Aftercare Appointment: [phone] Date of Aftercare Appointment: 07/02/23 Time of Aftercare Appointment: 12:15 PM Aftercare Appointment Comment: [address] [place] [address] (in person) Release of Information Aftercare Appointment: Obtained, Reviewed and Signed Contact Information Discharge Discharge Address: [address] [place] [id number] Discharge Plan Discharge Items Patient Disposition: Home - Self-Care Reason For Visit: SI WITH PLAN Discharge Diagnosis: Bipolar II Disorder, Depressed Activity: Resume your previous activity Non-emergency contact: Primary Care Provider and Psychiatrist Call non-emergency contact if: you have any medication questions and your symptoms worsen Follow-up/Referrals: PCP,NO [Primary Care Provider] - Diet: Regular Addtl Attending Provider Instructions: SPECIAL CARE INSTRUCTIONS: 1. Follow through with your scheduled aftercare appointments. If unable to keep an appointment, please call to reschedule. 2. Take your medication only as prescribed. Medication should not be changed or stopped without the approval of your doctor. In the event of worsening symptoms or concerns about side effects, contact your doctor immediately. 3. Utilize new healthy coping skills, anger management skills, and stress management skills learned during your hospitalization. Journal feelings and process them with a support person. Identify stressors or situations that may result in relapse, deterioration or inappropriate behaviors and develop a plan to deal with those issues. 4. If your coping skills are ineffective and you are in crisis, contact your outpatient providers for direction. If unable to reach your providers, please call the [facility] CRISIS LINE AT , go to the [facility] walk-in center at [address] [place] [address], [address], [place], or go to the closest Emergency Room. 5. Avoid alcohol and un-prescribed drugs. 6. You have been provided with the Mental Health Advance Directives Pamphlet for your review. 7. Your condition is stable for discharge to outpatient level of care, but recovery is an ongoing process. Ifthoughts to harm yourself or others return, follow the safety plan developed during your stay. Planning for a safe return home includes securing weapons. Our treatment team recommends weaponsbe removed from the home until your outpatient provider reassesses your progress. In rare cases where the items themselvescannot be removed, guns and ammunitionshould be secured separatelyand keys stored by a reliable personoutside of the home. If you were admitted on an involuntary commitment, the police or other legal authorities may be involved in this process. AFTERCARE APPOINTMENTS: * Please call your insurance company prior to your scheduled appointment to confirm your aftercare providers are covered. Take your insurance information to your appointments. WHO TO CALL AND WHEN: Medical Emergencies: For questions or emergencies related to your hospital stay, please contact the Inpatient Behavioral Health Unit at [phone]. A infection control preventionist is on-call 04/06 for the Behavioral Health Unit for emergencies At any time you feel your situation is an emergency, you may also call 911 immediately. VITAMIN D For your severe Vitamin D deficiency, continue prescription Vitamin D2 (ergocalciferol) 50,000 IU one capsule by mouth twice a week for 8 weeks. When the prescription Vitamin D2 is finished, start [id number] Vitamin D3 (cholecalciferol) 5,000 IU one capsule by mouth every day. After a month of daily Vitamin D3 5,000 IU you should have your Vitamin D level re-checked. Pending Studies at Discharge: No Stand-Alone Forms: [facility] Sm[facility] Cessation Medications and DC Order Prescriptions: New ergocalciferol (vitamin D2) 1,250 mcg (50,000 unit) Capsule 50,000 unit PO SuWe@0900 60 Days Qty: 15 0RF lurasidone [Latuda] 40 mg Tablet 40 mg PO DAILY 30 Days Qty: 30 0RF Continued lamotrigine 100 mg tablet 150 mg PO 1XD omeprazole 20 mg capsule,delayed release(DR/EC) 20 mg 1XD sucralfate [Carafate] 1 gram tablet 1 mg PO QID Discontinued lurasidone 20 mg tablet 20 mg PO 1XD Rx Instructions: take with a meal Discharge Orders: Discharge Order (Routine); Ordered 06/12/23 Ordered By: Kaz Marcano Admission Data Admit Date/Time: 06/07/23 00:21 Attending Provider: Vicki Garces Admit Provider: Vicki Garces Primary Care Provider: PCP,NO Other Interventions: Discharge Summary Assessment (RN) Last Done: 06/12/23 10:02 PSY Interdisciplinary Discharge Planning Last Done: 06/12/23 07:46 Coding Level of Care Code 01529 D/C day mgmt > 30 min Diagnoses Bipolar 2 disorder, major depressive episode F31.81 SKY (generalized anxiety disorder) F41.1 Insomnia G47.00 Deliberate self-cutting Z72.89 Vitamin D deficiency E55.9 Time Spent (min) 32
== END 2023-06-12 10:28 | disposition home or self-care (01) | DRG 885 ==
LOC: ED 18:56 → 3S 06-07 00:21